=== PATIENT | male | born 1990 | race Caucasian/White ===

== ENCOUNTER 2018-09-21 18:12 | Emergency (ER) | payer OTHER ==
[2018-09-21] MEDS ORDERED: BUFFERED LIDOCAINE 10 ML SYRINGE SUBQ STA (19:21)
--- NOTE | 2018-09-21 20:04 | ED Physician Documentation ---
PD HPI UPPER EXT INJURY - Stated complaint Stated Complaint: R HAND LAC - Chief complaint Chief Complaint: Laceration - History obtained from History obtained from: Patient - History of Present Illness Location: Right, Hand Type of injury: Laceration Where injury occurred: Home Timing - onset: Enter time (17:30), Today Timing - details: Abrupt onset Associated symptoms: No: Weakness, Numbness, Tingling, Swelling, Discolored Similar symptoms before: Has not had sx before - Additonal information Additional information: patient is right-hand dominant, sustained right hand laceration 5:30 PM tonight when he was pushing garbage down in garbage bag and a jagged metal scrap lacerated right hand. He is UTD on tetanus Review of Systems Skin: reports: Laceration (s) Neurologic: denies: Focal weakness, Numbness PD PAST MEDICAL HISTORY - Past Medical History Past Medical History: No Cardiovascular: None Respiratory: None Neuro: None Endocrine/Autoimmune: None GI: None : None HEENT: None Psych: None Musculoskeletal: None Derm: None - Past Surgical History Past Surgical History: No General: Other - Allergies Allergies/Adverse Reactions: Allergies Allergy/AdvReac Type Severity Reaction Status Date / Time No Known Drug Allergies Allergy Verified 09/21/18 18:46 - Social History Does the pt smoke?: No Smoking Status: Never smoker Does the pt drink ETOH?: No Does the pt have substance abuse?: Yes Substance Use and Type: Marijuana - Immunizations Immunizations are current?: Yes - POLST Patient has POLST: No PD ED PE NORMAL - Vitals Vital signs reviewed: Yes - General General: Alert and oriented X 3, No acute distress, Well developed/nourished - Neuro Neuro: No motor deficit, No sensory deficit, Other (right hand: all digits exhibit 5/5 flexion and extension. 3rd, 4th and 5th digits have LTS intact (others not tested as they are not distal to laceration)) PD ED PE EXPANDED - Extremities MELANIE UE/Hands Visual: 1 - laceration (4 cm length) Results - Vitals Vitals: Vital Signs - 24 hr 09/21/18 09/21/18 18:38 21:01 Temperature 36.8 C Heart Rate 86 72 Respiratory 18 18 Rate Blood Pressure 128/74 133/74 H O2 Saturation 99 99 Oxygen O2 Source Room air Procedures - Laceration (location) Hand right Dorsal Length in cm: 4 Wound type: Linear, Into muscle Neurovascular status: Sensory intact, Motor intact, Vascular intact Tendon involvement: Tendon intact Anesthesia: Lidocaine 1%, With bicarb Wound Preparation: Chlorhexadine Skin layer closure: Nylon, Interrupted (one interrupted suture placed, remainder are part of running stitch), Running, Size #-0 - enter number (4-0) Other: Patient tolerated well, No complications, Neurovascular intact, Dressing applied, Tetanus UTD Complexity: Simple PD MEDICAL DECISION MAKING - ED course Complexity details: considered differential, d/w patient Departure - Departure Disposition: 01 Home, Self Care Clinical Impression: Laceration Condition: Good Instructions: ED Laceration Hand Follow-Up: KIERAN Mata [Provider Group] (7-10 days for suture removal) Discharge Date/Time: 09/21/18 21:05
[2018-09-21] MEDS ORDERED: BACITRACIN OINT TOP STA (20:47)
[2018-09-21 21:02] VITALS: BP 133/74
== END 2018-09-21 21:05 | disposition home or self-care (01) ==
LOC: ED 18:12
DX: S61.411A Laceration without foreign body of right hand, initial encounter (principal); W26.9XXA Contact with unspecified sharp object(s), initial encounter; Y92.009 Unspecified place in unspecified non-institutional (private) residence as the place of occurrence of the external cause
CPT/HCPCS: 12002; 99282; 99283; A9270

== ENCOUNTER 2021-05-14 15:58 | Outpatient (CLI) | payer OTHER | END 2021-05-14 15:59 | disposition home or self-care (01) | LOC: COV 15:58 | PROVIDERS: ATTEND Family Medicine | DX: Z20.822 Contact with and (suspected) exposure to COVID-19 (principal) ==